=== PATIENT | female | born 1975 | race Caucasian/White ===

== ENCOUNTER → 2019-10-10 | Emergency (ER) | payer OTHER ==
[~2019-10-10] VITALS: Ht 162.6 cm; Wt 67.1 kg
== END | disposition home or self-care (01) ==
LOC: ER 18:55
DX: J32.8 Other chronic sinusitis (principal); R51 Headache

== ENCOUNTER 2019-10-19 10:36 | Outpatient (CLI) | payer OTHER | END 2019-10-19 15:00 | disposition home or self-care (01) | LOC: LAB 10:36 | DX: R05 Cough (principal); J11.1 Influenza due to unidentified influenza virus with other respiratory manifestations ==

== ENCOUNTER 2019-10-23 09:57 | Outpatient (CLI) | payer OTHER | END 2019-10-23 10:09 | disposition home or self-care (01) | LOC: LAB 09:57 | DX: D69.6 Thrombocytopenia, unspecified (principal); Z11.59 Encounter for screening for other viral diseases ==

== ENCOUNTER 2019-10-23 13:04 | Inpatient (IN) | payer OTHER ==
[~2019-10-23] VITALS: Ht 162.6 cm; Wt 63.5 kg
== END 2019-10-24 09:20 | disposition home or self-care (01) | DRG 866 ==
LOC: ER 13:04 → MEDJ 14:40 → SURH 16:15
PROVIDERS: ADMIT Internal Medicine
DX: A90 Dengue fever [classical dengue] (principal); E86.0 Dehydration; D69.49 Other primary thrombocytopenia; J32.9 Chronic sinusitis, unspecified; S70.02XA Contusion of left hip, initial encounter; W18.39XA Other fall on same level, initial encounter; Y92.89 Other specified places as the place of occurrence of the external cause; Y99.8 Other external cause status

== ENCOUNTER 2019-10-26 10:21 | Outpatient (CLI) | payer OTHER | END 2019-10-26 15:00 | disposition home or self-care (01) | LOC: LAB 10:21 | DX: A90 Dengue fever [classical dengue] (principal); D69.8 Other specified hemorrhagic conditions ==